=== PATIENT | female | born 1955 | race Caucasian/White ===

== ENCOUNTER 2018-10-18 07:38 | Emergency (ER) | payer OTHER ==
[~2018-10-18] VITALS: Ht 157.5 cm; Wt 68.0 kg
[2018-10-18] MEDS ORDERED: VASOTEC10 MG PO (07:45)
== END 2018-10-18 09:32 | disposition home or self-care (01) ==
LOC: ER 07:38
DX: S33.9XXA Sprain of unspecified parts of lumbar spine and pelvis, initial encounter (principal); X50.3XXA Overexertion from repetitive movements, initial encounter; Y93.89 Activity, other specified; Y92.89 Other specified places as the place of occurrence of the external cause; Y99.8 Other external cause status